=== PATIENT | male | born 1960 ===

== ENCOUNTER 2022-02-10 08:06 | Outpatient (CLI) | payer OTHER ==
[2022-02-10] MEDS ORDERED: Magnevist 469MG/ML 20 ML VIAL ONE (12:04)
== END 2022-02-10 08:07 | disposition home or self-care (01) ==
LOC: CSHMRI 08:06
PROVIDERS: ATTEND Urology
DX: C61 Malignant neoplasm of prostate (principal)
CPT/HCPCS: 72197